=== PATIENT | female | born 2005 | race African-American/Black ===

== ENCOUNTER 2025-06-23 17:53 | Emergency (ER) | payer OTHER, SELFPAY ==
[2025-06-23 18:07] VITALS: BP 113/77
[2025-06-23 18:35] LABS: Hematocrit 41.2 % (37.0-47.0); Hemoglobin 13.7 g/dL (12.0-16.0); Mean Corp Hgb Conc. 33.3 g/dL (33.0-37.0); Mean Corpuscular Volume 86.9 fL (81.0-99.0); Nucleated Red Blood Cells % 0 %; Platelet Count 199 10^3/uL (130-400); Red Cell Dist. Width 12.2 % (11.5-14.5)
[2025-06-23 18:59] LABS: HCG, Serum Qualitative Screen Negative
[2025-06-23 19:04] LABS: ALT (SGPT) 18 U/L (0-35); AST (SGOT) 23 U/L (14-36); Albumin 4.7 g/dl (3.5-5.0); Alkaline Phosphatase 66 U/L (38-126); Blood Urea Nitrogen 11 mg/dl (7-17); Calcium 9.0 mg/dl (8.4-10.2); Carbon Dioxide 27 mmol/L (22-30); Chloride 101 mmol/L (98-107); Glucose 100 mg/dl (70-99); Lipase 110 U/L (23-300); Potassium 3.9 mmol/L (3.5-5.1); Sodium 135 mmol/L (135-145); Total Protein 7.4 g/dl (6.3-8.2); eGFR > 60.00
[2025-06-23 19:14] LABS: Urine Character Clear (Clear)
--- NOTE | 2025-06-23 19:25 | ED.GENMED ---
History of Present Illness
General
Chief Complaint: Abdominal Pain
Source: patient
Exam Limitations: none
Time Seen by Provider: 06/23/25 19:19
Nursing documentation reviewed up to this point in time: agreed with
History of Present Illness
History of Present Illness:
19-year-old female with a past medical history of asthma presents to the ER for evaluation of abdominal pain. Patient reports onset of symptoms yesterday and they have been constant since that time although intensity does tend to wax and wane
somewhat. She reports pain diffusely somewhat worse on the left side. She reports some associated nausea but no vomiting. She has had increased belching/reflux. She has had diarrhea. She denies any dysuria, hematuria, change in frequency. She
denies any vaginal bleeding or discharge. Last menstrual period 06/06/2025. She says she had a subjective fever with low-grade temp 99.3 �F today but no objective fever. She denies similar symptoms in the past. Was initially seen at urgent care
and was referred to the ER for further assessment. Denies prior abdominal surgeries.
Review of Systems
Review of Systems
All Other Systems: ROS reviewed and negative except as documented in HPI and ROS
Constitutional: Denies fever
Respiratory: Denies trouble breathing
Cardiac: Denies chest pain
ABD/GI: Reports abdominal pain, nausea and diarrhea; Denies vomiting
: Denies dysuria, flank pain or bleeding
Musculoskeletal: Denies neck pain or back pain
Neurological: Denies dizzy or headache
Phy Exam
Physical Exam
Physical Exam:
General: Awake, alert, oriented x3; no acute distress
Head: Normocephalic, atraumatic
Eyes: Conjunctiva normal, sclera anicteric
Throat: Airway intact, handling secretions
Neck: Trachea midline, supple without meningismus
Lungs: Clear to auscultation bilaterally, no wheezing, rales, rhonchi
Heart: Regular rate and rhythm, no murmurs, gallops, or rubs
Abd: Soft, non distended, diffusely tender to palpation maximal in the left upper abdomen
Back: No CVA tenderness
Neuro: Grossly intact
Skin: no rash in area of concern
Extremities: No edema in extremities, warm and well-perfused
Scores
Heart Failure Risk
Heart Failure Risk Score: Not Applicable
Heart Score for Chest Pain Patients
STEMI patient?: Not applicable
Withdrawal Assessment of Alcohol
Withdrawal Assessment Completed?: Not applicable
Course
Orders/Labs/Results
Orders:
Orders
06/23/25 18:10
Test Result ONCE
06/23/25 18:23
Complete Blood Count/With Diff Urgent
Comprehensive Metabolic Panel Urgent
HCG, Serum Qualitative Screen Urgent
Lipase Urgent
06/23/25 18:53
Urinalysis Reflex To Culture Urgent
Date Specimen was Collected: 06/23/25
Time Specimen was Collected: 18:10
Urine Microscopic Reflex Cult Urgent
Urine Culture Urgent
[place] Source: U
Specimen Description:
Date Specimen was Collected: 06/23/25
Time Specimen was Collected: 18:10
06/23/25 19:25
CT Abd/pelvis W Iv Cont Urgent
Comment:
Reason For Exam: abd pain, diffuse TTP
Ketorolac [Toradol] 15 mg IV NOW STA
Abnormal Lab Results
06/23/25 06/23/25
18:23 18:53
Absolute Lymphs (auto) 0.4 L 10^3/uL
(1.2-3.4)
Immature Gran % 0.6 H %
(0-0.5)
Neutrophils % 82.2 H %
(42.2-75.2)
Lymphocytes % 7.5 L %
(20.5-51.1)
Glucose 100 H mg/dl
(70-99)
Urine Ketones 1+ A
(Negative)
Urine Urobilinogen 2+ A
(Neg - 1+)
Leukocyte Esterase Rfl 1+ A
(Negative)
Urine WBC (Reflex) 11-15 A /HPF
(0-5)
Urine Bacteria (Reflex) Few A
(Negative)
Urine Albumin (Reflex) 2+ A
(Neg - Trace)
06/23/25 18:23
06/23/25 18:23
Vital Signs
Initial and Last Documented VS:
Initial Vital Signs
Temp Pulse Resp BP Pulse Ox
37.3 C 100 16 113/77 98
06/23/25 18:07 06/23/25 18:07 06/23/25 18:07 06/23/25 18:07 06/23/25 18:07
Last Documented Vital Signs
Temp Pulse Resp BP Pulse Ox
37.3 C 100 16 113/77 98
06/23/25 18:07 06/23/25 18:07 06/23/25 18:07 06/23/25 18:07 06/23/25 19:29
MDM/Problems Addressed
Differential Diagnosis Includes:
Gastritis, pancreatitis, diverticulitis, constipation, gastroenteritis, nephrolithiasis, UTI, ovarian cyst, appendicitis less likely
MDM/Problems Addressed:
19-year-old female presents for evaluation of diffuse abdominal pain somewhat worse on the left constant since yesterday associate with nausea and diarrhea, subjective fever. She was seen in urgent care and referred to the ER for further
assessment. Vitals and exam are as above. She had labs in triage including a CBC and a CMP which were unremarkable. Her hCG is negative. Urinalysis is essentially bland. Plan to check CT abdomen. Toradol for pain. Reassess at the above.
CT shows signs consistent with enteritis no other acute abnormalities. Clinically stable on reassessment, stable for discharge with supportive care. Advised bland diet, increase fluids, Tylenol as needed. Spoke about return precautions and all
questions answered.
*Radiology
Radiology exam reviewed: radiology read reviewed
*Pulse Oximetry
SaO2: 98
Oxygen Mode of Delivery: Room air
Patient hypoxic: no (98%)
*Critical Care Note
Total Time (30-74mins, 75-104mins- exclusive of procedures): Not Applicable
Data Reviewed
Source: patient
ED Attending Note
-
Portions of this chart may have been created with voice recognition software.� Occasional wrong word or��sound alike� substitutions may have occurred due to the inherent limitations of voice recognition software.
Discharge Plan
Departure
Patient Disposition: Home (Routine Discharge)
Date of Disposition: 06/23/25
Time of Disposition: 21:05
Patient with high blood pressure during this ER visit?: No
Discharge Problem:
Enteritis
Instructions: Viral gastroenteritis in adults
Referrals:
Nella Ahumada MD [Family Provider, Internal Medicine] - Call in 1-3 days for appt
Activity Restrictions/Additional Instructions:
Thank you for visiting the Emergency Department at [facility].
1. Please schedule a follow up appointment as directed. Call first thing tomorrow morning to make an appointment.
2. If indicated, please take your medications as instructed and indicated on discharge paperwork.
3. If any of your symptoms do not improve, or persist, or become more severe within 6-12 hours, please return to the emergency department for further care.
4. Please return to the emergency department if you develop a headache, neck pain/stiffness, fever greater than 100.4F, chest pain, shortness of breath, persistent nausea, vomiting, slurred speech, difficulty walking, numbness/tingling, weakness,
signs of infection or any other symptoms that are worrisome to you.
Please call [phone] if you have any questions.
Interventions
Interventions:
*Risk Screen - Suicide Last Done: 06/23/25 17:55
*General Assessment Last Done: 06/23/25 18:07
*Neglect/Abuse Screening Last Done: 06/23/25 18:07
*ED COVID-19 Vaccine History Last Done: 06/23/25 18:07
*ED Influenza Vaccine History Last Done: 06/23/25 19:31
[facility] Fall Risk Assessment Tool Last Done: 06/23/25 19:31
RN-Fffwbh-Gierutnscz Assessment Last Done: 06/23/25 19:31
Discharge Date and Time
Print Language: GRENADIAN
[2025-06-23] MEDS: TORADOL 15 MG IV (19:34)
[2025-06-23 19:41] LABS: Urine Red Blood Cell 0-2 /HPF (0-2); Urine Squamous Cell >30 /LPF (Few)
== END 2025-06-23 21:20 | disposition home or self-care (01) ==
LOC: EMR 17:53
PROVIDERS: Emergency Medicine; EMERGENCY PHYSICIAN Emergency Medicine; FAMILY PHYSICIAN Internal Medicine
DX: K52.9 Noninfective gastroenteritis and colitis, unspecified (principal); J45.909 Unspecified asthma, uncomplicated
CPT/HCPCS: 99284; 74177; 80053; 81003; 81015; 83690; 84703; 85025; 87086; Q9967